=== PATIENT | female | born 1965 | race Caucasian/White ===

== ENCOUNTER 2017-07-06 07:41 | Outpatient (CLI) | payer BC ==
--- NOTE | 2017-07-06 09:06 | MRI ---
MRI RIGHT SHOULDER: Date: 07/06/17 PROVIDED CLINICAL HISTORY: Right shoulder pain. FINDINGS: There is low grade partial thickness undersurface tearing suspected involving the distal conjoined te ndon just proximal to the footplate. The components of the rotator cuff appear otherwise intact. The long head biceps tendon appears intact and normally located. The glenoid labrum and glenohumeral articular cartilage is suboptimally evaluated without joint distention, without definite evidence for abnormality. The amount of fluid within the glenohumeral joint appears physiologic. There is no significant subacr omial/subdeltoid bursal fluid. Acromioclavicular joint osteoarthrosis is present with mild mass effec t upon the subjacent supraspinatus. No focal concerning regional marrow or muscular signal abnormalit y is apparent. Partially visualized prominent lymph node within the right axilla. IMPRESSION: 1. Low grade partial thickness undersurface tear is suspected involving the distal conjoined tendon just proximal to the footplate. 2. Acromioclavicular joint osteoarthrosis. 3. Partially visualized enlargement within the right axilla, nonspecific. POS: [facility]
== END 2017-07-06 07:42 | disposition home or self-care (01) ==
LOC: MRI 07:41
PROVIDERS: ATTEND Specialist
DX: M24.811 Other specific joint derangements of right shoulder, not elsewhere classified (principal); M19.011 Primary osteoarthritis, right shoulder

== ENCOUNTER 2017-11-29 15:33 | Outpatient (CLI) | payer BC | END 2017-11-29 15:34 | disposition home or self-care (01) | LOC: BICMAMMO 15:33 | PROVIDERS: ATTEND Specialist | DX: Z12.31 Encounter for screening mammogram for malignant neoplasm of breast (principal) | CPT/HCPCS: 77063; 77067 ==

== ENCOUNTER 2018-04-27 08:15 | Outpatient (CLI) | payer BC ==
--- NOTE | 2018-04-27 08:56 | RAD ---
PA AND LATERAL CHEST: HISTORY: Cough. FINDINGS: Heart size and mediastinum are within normal limits. Lungs are clear of infiltrates. No significant bony findings. IMPRESSION: No active intrathoracic disease. POS: [facility]
== END 2018-04-27 08:16 | disposition home or self-care (01) ==
LOC: BICRAD 08:15
PROVIDERS: ATTEND Specialist
DX: R05 Cough (principal); R53.0 Neoplastic (malignant) related fatigue; J32.0 Chronic maxillary sinusitis
CPT/HCPCS: 36415; 71046; 80053; 84439; 84443; 85025

== ENCOUNTER 2018-05-14 10:30 | Outpatient (CLI) | payer BC ==
--- NOTE | 2018-05-14 14:16 | ULT ---
THYROID ULTRASOUND: DATE: 05/14/2018. HISTORY: Followup evaluation. History of Neno's thyroiditis. COMPARISON: 01/21/2015. FINDINGS: The thyroid gland demonstrates homogeneous echotexture, and no discrete thyroid nodule is appreciated . There was a small nodule seen in the inferior pole right lobe of the thyroid gland, but this nodul e was not imaged on today's examination. Thee is no thyroid nodule seen in either lobe of the thyroi d gland. The right lobe of the thyroid gland measures 2.4 cm x 0.9 cm x 0.8 cm with the left lobe measuring 2. 1 cm x 0.8 cm x 0.7 cm. The thyroid isthmus measures 0.25 cm in AP dimensions. IMPRESSION: 1. The thyroid gland is generally small in size, and no thyroid nodule is seen in either lobe of the thyroid gland. 2. The previously noted nodule in the inferior pole right lobe of the thyroid gland on the study in 2014 is not visualized on today's exam. POS: [facility]
== END 2018-05-14 10:31 | disposition home or self-care (01) ==
LOC: BICULT 10:30
PROVIDERS: ATTEND Nurse Practitioner Family
DX: E01.0 Iodine-deficiency related diffuse (endemic) goiter (principal); R05 Cough; Z80.8 Family history of malignant neoplasm of other organs or systems
CPT/HCPCS: 76536

== ENCOUNTER 2018-06-26 09:09 | Outpatient (CLI) | payer BC | END 2018-06-26 09:10 | disposition home or self-care (01) | LOC: CTENTCT 09:09 | PROVIDERS: ATTEND Specialist | DX: J32.9 Chronic sinusitis, unspecified (principal) | CPT/HCPCS: 70486 ==

== ENCOUNTER 2018-07-05 11:43 | Day surgery (SDC) | payer BC ==
[2018-07-04 12:58] VITALS: BMI 29.2
[2018-07-05] MEDS ORDERED: Oxymetazoline HCl 0.05% ( 15 ML ) ONE (11:55)
[2018-07-05] MEDS ORDERED: Sodium Chloride 0.9% 20 ML ONE (12:10)
[2018-07-05] MEDS ORDERED: Ondansetron PF 4 MG/2 ML Vial ONE (12:55)
[2018-07-05] MEDS ORDERED: Dexamethasone 20 MG/5 ML VIAL ONE (12:55)
[2018-07-05] MEDS ORDERED: Lidocaine 1% w/Epinephrine 1:100K 20 ML VIAL ONE (12:55)
[2018-07-05] MEDS ORDERED: PROPOFOL 200 MG/20 ML VIAL ONE (12:55)
[2018-07-05] MEDS ORDERED: Bacitracin Zinc Ointment 30 gm TUBE ONE (12:55)
[2018-07-05] MEDS ORDERED: Lidocaine 1% PF 5 ML VIAL ONE (12:55)
[2018-07-05] MEDS ORDERED: EPINEPHrine 1 MG/ML AMP ONE (12:55)
[2018-07-05] MEDS ORDERED: Fentanyl 100 MCG/2 ML VIAL ONE ×3 (12:56→14:42)
[2018-07-05] MEDS ORDERED: methylPREDNISolone Acetate 40 mg/ml Vial ONE (12:56)
[2018-07-05] MEDS ORDERED: Morphine 4 MG/ML VIAL ONE (14:21)
[2018-07-05] MEDS ORDERED: Morphine 2 MG/ML SYRINGE ONE (14:33)
--- NOTE | 2018-07-05 20:30 | EKG ---
Test Reason : PREOP Blood Pressure : / mmHG Vent. Rate : 083 BPM Atrial Rate : 083 BPM P-R Int : 168 ms QRS Dur : 078 ms QT Int : 376 ms P-R-T Axes : 066 -16 038 degrees QTc Int : 441 ms Normal sinus rhythm Normal ECG No previous ECGs available Confirmed by DR. Katherine MADERA (3) on 07/05/2018 8:30:05 PM Referred By: JITENDRA Confirmed By:DR. Katherine MADERA
--- NOTE | 2018-07-05 21:05 | OP ---
DATE OF PROCEDURE: 07/05/2018 PREOPERATIVE DIAGNOSES: 1. Chronic sinusitis. 2. Recurrent sinusitis. 3. Chronic facial pain. 4. Headache. 5. Deviated septum. 6. Hypertrophied inferior turbinates. POSTOPERATIVE DIAGNOSES: 1. Chronic sinusitis. 2. Recurrent sinusitis. 3. Chronic facial pain. 4. Headache. 5. Deviated septum. 6. Hypertrophied inferior turbinates. PROCEDURES PERFORMED: 1. Bilateral nasal endoscopy with maxillary antrostomy with removal of tissue. 2. Bilateral nasal endoscopy with total ethmoidectomy. 3. Bilateral nasal endoscopy with frontal sinusotomy. 4. Bilateral nasal endoscopy with sphenoidotomy. 5. Septoplasty. 6. Bilateral nasal endoscopy with submucosal resection of inferior turbinates. DESCRIPTION OF PROCEDURE: BILATERAL NASAL ENDOSCOPY WITH MAXILLARY ANTROSTOMY WITH REMOVAL OF TISSUE: The uncinate was then identified and the extent of the uncinate was appreciated by out-fracturing the uncinate with the ball-tip probe. We then used the sickle blade to disarticulate the uncinate from the lateral nasal wall. This was then removed with straight biting and upbiting punches with the remaining shrouds of mucosa and bony septum removed with the micro-debrider. The natural os of the maxillary sinus was then identified and enlarged with the maxillary punches and back biting forceps. BILATERAL NASAL ENDOSCOPY WITH TOTAL ETHMOIDECTOMY: The anterior face of the ethmoid bulla was entered and with the micro-debrider, dissection continued posteriorly to the ground lamella. The limits of dissection included the insertion of the middle turbinate, medial orbital wall, and base of skull. We similarly identified the frontal recess and removed shrouds of bone and debris in that region to obtain patency into the agger nasi region and frontal recess. We then entered the ground lamella and its anteroinferior aspect and proceeded posteriorly, opening the posterior ethmoid air-cell system. Again, the limits of dissection included the base of skull and medial orbital wall. BILATERAL NASAL ENDOSCOPY WITH FRONTAL SINUSOTOMY: Following the ethmoidectomy, we then turned our attention to the frontal nasal recess. The agger nasi cells were addressed and the frontal recess was exposed. The natural opening to the frontal sinus was identified. At this point, any obstructing shrouds of mucosa and bony fragments were removed with a curved microdebrider. The wound was then examined and found to be free of any obstructing debris. We then turned our attention to the contralateral side and performed a similar procedure again under endoscopic visualization using a 45-degree scope. We were able to visualize the frontal recess. Obstructing shrouds of mucosa and bone were removed with a microdebrider. The natural os of frontal sinus was identified and enlarged and irrigated. At this point, the frontal sinusotomy was completed and we turned to the next area of concern. BILATERAL NASAL ENDOSCOPY WITH SPHENOIDOTOMY: The anterior face of the sphenoid was identified and entered in its extreme anteroinferior aspect. A sphenoid punch was then used to enlarge the sphenoidotomy and no injury to the optic nerve or internal carotid artery occurred. SEPTOPLASTY After local anesthesia was infiltrated into the submucoperichondrial plane, a standard [place] incision was made with a #15 blade down to the level of the septal cartilage. The caudal elevator was used to elevate the mucoperichondrium from the underlying cartilage. We then proceeded beyond the bony cartilaginous junction and elevated the bony periosteum as well. Great attention was paid to the spur to prevent rent formation in the septal flap. A transcartilaginous incision was then made, while preserving an adequate dorsal and caudal cartilaginous strut for tip support. The deformed cartilage was removed and disarticulated from the bony cartilaginous junction and maxillary crest. This was placed in saline and would later be crushed and returned to the mucoperichondrial envelope. We then elevated the contralateral periosteum from the bony cartilaginous region and removed the deformed portions of the bone and bony spurs. The cartilage was then crushed and placed back into the mucoperichondrial envelope and the mucosa was re-approximated with a quilting stitch composed of rapidly absorbent gut suture. The Seligman incision was also closed with interrupted gut suture. At the completion of the case, Martines splints were placed and suture secured to the caudal septum. BILATERAL NASAL ENDOSCOPY WITH SUBMUCOSAL RESECTION OF INFERIOR TURBINATES: After consent was obtained, the patient was identified, brought to the operating room, and placed on the operating room table in the supine position. Consent was obtained, notifying the patient of the possibility of additional infections, bleeding, brain injury, and eye/orbital injury. The patient was placed on the operating room table, and general endotracheal anesthesia and intravenous access was obtained. The patient was then positioned, prepped and draped for endoscopic sinus surgery. Nasal preparation included trimming nasal vestibular hairs and spraying in topical Afrin. We then placed Afrin topical solution on nasal pledgets and strategically located them intranasally. The perinasal mucosa was injected with 1% lidocaine with 1:100,000 epinephrine in the submucoperichondrial plane of the septum, lateral nasal wall, and anterior to the uncinate. The patient was then prepped and draped in a sterile fashion and positioned for endoscopic sinus surgery. With the 0-degree endoscope, the patient underwent systematic nasal endoscopy. There were no suspicious internasal masses or lesions identified. We then focused our attention to the osteomeatal complex region under the middle turbinate. The inferior turbinates were visualized with a 0 degree endoscope and outfractured with a Kaushik elevator. The inferior medial aspect was cauterized with the electrocautery. Hemostasis was obtained . After adequate airway was established, we turned our attention to the contralateral side and used a similar procedure. Again, a [place] elevator was used to outfracture inferior turbinates under endoscopic visualization. With a suction cautery, the free inferior medial aspect was cauterized under direct visualization along the length of the inferior turbinate. At this point, we then turned our attention to the contralateral side and proceeded with endoscopic sinus surgery. At the completion of the case, Rice keel splints were placed in the ethmoid cavities after the ethmoidectomy. There were no complications. The patient tolerated the procedure well and was discharged to the recovery room in stable condition prior to return to the preoperative day stay with ultimate discharge home. Prescriptions for pain medication and antibiotics were provided. The patient received intramuscular Depo-Medrol during the case. Job ID: [id number]
== END 2018-07-05 17:20 | disposition home or self-care (01) ==
LOC: SDC 11:43
PROVIDERS: ATTEND Specialist
PROC: 099S8ZZ Drainage of Right Frontal Sinus, Via Natural or Artificial Opening Endoscopic (ICD-10-PCS; principal; 2018-07-05)
PROC: 099W8ZZ Drainage of Right Sphenoid Sinus, Via Natural or Artificial Opening Endoscopic (ICD-10-PCS; principal; 2018-07-05)
PROC: 09BR8ZZ Excision of Left Maxillary Sinus, Via Natural or Artificial Opening Endoscopic (ICD-10-PCS; principal; 2018-07-05)
PROC: 099T8ZZ Drainage of Left Frontal Sinus, Via Natural or Artificial Opening Endoscopic (ICD-10-PCS; principal; 2018-07-05)
PROC: 09BQ8ZZ Excision of Right Maxillary Sinus, Via Natural or Artificial Opening Endoscopic (ICD-10-PCS; principal; 2018-07-05)
PROC: 09SL8ZZ Reposition Nasal Turbinate, Via Natural or Artificial Opening Endoscopic (ICD-10-PCS; principal; 2018-07-05)
PROC: 09TV8ZZ Resection of Left Ethmoid Sinus, Via Natural or Artificial Opening Endoscopic (ICD-10-PCS; principal; 2018-07-05)
PROC: 09SM0ZZ Reposition Nasal Septum, Open Approach (ICD-10-PCS; principal; 2018-07-05)
PROC: 09TU8ZZ Resection of Right Ethmoid Sinus, Via Natural or Artificial Opening Endoscopic (ICD-10-PCS; principal; 2018-07-05)
PROC: 099X8ZZ Drainage of Left Sphenoid Sinus, Via Natural or Artificial Opening Endoscopic (ICD-10-PCS; principal; 2018-07-05)
DX: J32.4 Chronic pansinusitis (principal); J33.0 Polyp of nasal cavity; J34.89 Other specified disorders of nose and nasal sinuses; J34.2 Deviated nasal septum; J34.3 Hypertrophy of nasal turbinates; B95.7 Other staphylococcus as the cause of diseases classified elsewhere; Z79.899 Other long term (current) drug therapy
CPT/HCPCS: 85014; 87070; 87077; 87186; 87205; 93005; 93010; J0171; J1030; J1100; J2001; J2270; J2405; J2704; J3010

== ENCOUNTER 2018-09-06 13:29 | Day surgery (SDC) | payer BC ==
[2018-09-05 11:16] VITALS: BMI 28.7
[2018-09-06] MEDS ORDERED: Lidocaine 1% w/Epinephrine 1:100K 20 ML VIAL ONE (13:48)
[2018-09-06] MEDS ORDERED: Fentanyl 100 MCG/2 ML VIAL ONE (13:49)
[2018-09-06] MEDS ORDERED: Famotidine/PF 20 mg/2ml Vial ONE (13:49)
[2018-09-06] MEDS ORDERED: Oxymetazoline HCl 0.05% ( 15 ML ) ONE (13:56)
[2018-09-06] MEDS ORDERED: Scopolamine 1.5 mg/72 hour Patch ONE (14:02)
[2018-09-06] MEDS ORDERED: Triamcinolone 40 MG/ML VIAL ONE (14:51)
[2018-09-06] MEDS ORDERED: Ondansetron PF 4 MG/2 ML Vial ONE (17:12)
[2018-09-06] MEDS ORDERED: Metoclopramide HCl 10 MG/2 ML VIAL ONE (17:12)
[2018-09-06] MEDS ORDERED: Lidocaine 1% PF 5 ML VIAL ONE (17:12)
[2018-09-06] MEDS ORDERED: PROPOFOL 200 MG/20 ML VIAL ONE (17:12)
[2018-09-06] MEDS ORDERED: Dexamethasone 20 MG/5 ML VIAL ONE (17:12)
[2018-09-06] MEDS ORDERED: Succinylcholine Chloride 20 MG/ML 10 ml SYRINGE FS ONE (17:12)
--- NOTE | 2018-09-07 13:27 | OP ---
DATE OF PROCEDURE: 09/06/2018 PREOPERATIVE DIAGNOSES: Allergic fungal sinusitis and postoperative adhesions. POSTOPERATIVE DIAGNOSES: Allergic fungal sinusitis and postoperative adhesions. PROCEDURE PERFORMED: Bilateral nasal endoscopy with lysis of adhesions and debridement. DESCRIPTION OF PROCEDURE: After consent was obtained, the patient was identified and brought to the operating room, and placed on the operating room table in the supine position. General laryngeal mask anesthesia was obtained. The patient was positioned for surgery. The patient was found to have dense adhesions postoperatively causing the middle turbinate to scar anteriorly along the medial orbital wall and nasal wall. This was taken down with a infiltrated with 1% lidocaine with 1:100,000 epinephrine and an upbiting [place] was used to remove the scar tissue. We were then able to suction the from the ethmoid cavity, sphenoid cavity, and ensured that the frontal recess was patent. We then placed MeroGel packs in the nasal cavity and injected those with Kenalog to prevent postoperative adhesion formation. The patient was then awakened, the mask was removed, and taken to the recovery room, where she remained in stable condition prior to discharge to home. Job ID: [id number]
== END 2018-09-06 17:24 | disposition home or self-care (01) ==
LOC: SDC 13:29
PROVIDERS: ATTEND Specialist
PROC: 09BK8ZZ Excision of Nasal Mucosa and Soft Tissue, Via Natural or Artificial Opening Endoscopic (ICD-10-PCS; principal; 2018-09-06)
DX: J32.8 Other chronic sinusitis (principal); J34.89 Other specified disorders of nose and nasal sinuses; E07.9 Disorder of thyroid, unspecified; Z88.2 Allergy status to sulfonamides; Z79.899 Other long term (current) drug therapy
CPT/HCPCS: 36415; 85014; 87070; 87077; 87186; 87205; J0131; J1100; J2001; J2405; J2704; J2765; J3010; J3301; S0028

== ENCOUNTER 2018-12-03 15:55 | Outpatient (CLI) | payer BC ==
--- NOTE | 2018-12-03 16:24 | MMO ---
Bilateral MAMMO Bilat Screen [facility]. CLINICAL HISTORY: Patient is 53 years old and is seen for screening. The patient has no family history of breast cancer. The patient has no personal history of cancer. The patient has a history of right Excisional Biopsy - benign - over 20 yrs ago. VIEWS: The views performed were: bilateral craniocaudal with tomosynthesis; bilateral mediolateral oblique with tomosynthesis; and left exaggerated craniocaudal. FILMS COMPARED: The present examination has been compared to prior imaging studies performed at [facility] on 06/17/2013, 09/04/2014, 09/07/2015 and 11/29/2017. MAMMOGRAM FINDINGS: The breasts are heterogeneously dense, which could obscure a lesion on mammography. There are stable benign appearing calcifications with diffuse/scattered distribution seen in both breasts. There are no suspicious masses, suspicious calcifications, or new areas of architectural distortion. IMPRESSION: THERE IS NO MAMMOGRAPHIC EVIDENCE OF MALIGNANCY. A ROUTINE FOLLOW-UP MAMMOGRAM IN 1 YEAR IS RECOMMENDED. THE RESULTS OF THIS EXAM WERE SENT TO THE PATIENT. ACR BI-RADS Category 2 - Benign finding MAMMOGRAPHY NOTE: 1. A negative mammogram report should not delay a biopsy if a dominant of clinically suspicious mass is present. 2. Approximately 10% to 15% of breast cancers are not detected by mammography. 3. Adenosis and dense breasts may obscure an underlying neoplasm. Reported by: TWIN AYON MD Electonically Signed: [id number]
== END 2018-12-03 15:56 | disposition home or self-care (01) ==
LOC: BICMAMMO 15:55
PROVIDERS: ATTEND Specialist
DX: Z12.31 Encounter for screening mammogram for malignant neoplasm of breast (principal); Z91.89 Other specified personal risk factors, not elsewhere classified
CPT/HCPCS: 77063; 77067

== ENCOUNTER 2019-01-08 10:29 | Inpatient (IN) | payer BC ==
[2019-01-08] MEDS ORDERED: Ondansetron HCl/PF 8 MG in Sodium Chloride 0.9% 50 ML IVPB PRN (11:37)
[2019-01-08 11:44] VITALS: BMI 27.8
[2019-01-08] MEDS: Sodium Chloride 0.9% 1,000 ML IV SCH ×4 (12:57→19:12)
[2019-01-08] MEDS: Diphenoxylate HCl/Atropine Tablet PO SCH ×2 (12:57→17:39)
[2019-01-08] MEDS: Fentanyl 100 MCG/2 ML VIAL SLOW IVP PRN ×2 (12:57→17:46)
--- NOTE | 2019-01-08 12:57 | RAD ---
XR Chest 1 View Portable HISTORY: Cough COMPARISON: 04/27/2018 FINDINGS: The heart size is normal. The lungs are well expanded without focal areas of consolidation, pneumoth orax or pleural effusions. There is a radiopaque density which may represent a coin noted under the right hemidiaphragm and was not seen on the previous study. This may be located in the right/transverse colon. The other possibility is a calcific mass in the liver.
[2019-01-08] MEDS ORDERED: Sodium Chloride 0.9% 1,000 ML IV SCH (13:45)
[2019-01-08 13:52] LABS: #Eosinphils 0.1 thou/uL (0.0-0.7); #Lymphocytes 2.8 thou/uL (1.20-3.40); #Monocytes 0.8 thou/uL (0.11-0.59); %Basophils 0.3 % (0.0-1.0); %Eosinophils 1.2 % (0.0-10.0); %Lymphocytes 32.4 % (21.0-51.0); %Monocytes 8.9 % (0.0-10.0); %Neutrophils 57.2 % (42.0-75.0); Hemoglobin 11.9 g/dL (12.0-16.0); Mean Corpuscular HGB CONC 33.5 g/dL (32.0-36.0); Mean Corpuscular Hemoglobin 29.6 pg (27.0-31.0); Mean Corpuscular Volume 88.5 fL (78.0-98.0); Mean Platelet Volume 7.3 fL (7.4-10.4); Platelet Count 284 thou/uL (130-400); RBC Distribution Width 12.7 % (11.5-14.5); Red Blood Cell (RBC) Count 4.03 mill/uL (4.20-5.40); White Blood Cell (WBC) Count 8.7 thou/uL (4.8-10.8)
[2019-01-08 14:02] LABS: Bilirubin Negative (Negative); Blood, Urine Negative (Negative); Clarity Clear (Clear); Glucose, Urine (Dipstick) Normal (Negative); Leukocyte Negative Leu/uL (Negative); Nitrite Negative (Negative); Protein, Urine (Dipstick) Negative (Neg-Trace); Urobilinogen Normal mg/dL (Less than 2)
[2019-01-08 14:12] LABS: ALT (SGPT) 10 U/L (8-55); AST (SGOT) 20 U/L (5-34); Albumin 3.7 g/dL (3.5-5.0); Alkaline Phosphatase 100 U/L (40-150); Anion Gap 11 mmol/L (10-20); BUN (Urea Nitrogen) 10 mg/dL (9.8-20.1); Bilirubin, Total 0.3 mg/dL (0.2-1.2); CK (CPK) 60 U/L (29-168); Calc. Creatinine Clearance 93 mL/min (70-130); Calcium 8.1 mg/dL (7.8-10.44); Carbon Dioxide 25 mmol/L (22-29); Chloride 106 mmol/L (98-107); Estimated GFR-MDRD 84; Globulin 2.9 g/dL (2.4-3.5); Glucose 73 mg/dL (70-105); Potassium 3.5 mmol/L (3.5-5.1); Protein, Total 6.6 g/dL (6.0-8.3); Sodium 138 mmol/L (136-145)
[2019-01-08] MEDS ORDERED: Acetaminophen 650 MG Suppository PR PRN (16:21)
[2019-01-08] MEDS: cefTRIAXone\\ROCEPHIN 1 GM in Sodium Chloride 0.9% 100 ML IVPB SCH (19:11)
[2019-01-08] MEDS ORDERED: Diphenoxylate HCl/Atropine Tablet PO PRN (19:22)
[2019-01-08] MEDS ORDERED: Zolpidem Tartrate 5 MG TAB PO PRN (19:45)
[2019-01-09] MEDS: Sodium Chloride 0.9% 1,000 ML IV SCH ×4 (00:39→17:38)
--- NOTE | 2019-01-09 00:47 | HP ---
CHIEF COMPLAINT ON ADMISSION: Dehydration and intractable headache. HISTORY OF PRESENT ILLNESS: The patient is a 53-year-old female who for the last 3 days has had nausea, vomiting, and diarrhea and severe bilateral headache associated with blurred vision. She has tried to hold down p.o. fluids, she has been unable to do so. She finally came in to Dr. Carrasquillo' office on the day of admission, where she was noted on UA to have 300 level ketones and blood in her urine. She was very weak and barely able to walk, at which point, she was clear, she needed to be hospitalized and rehydrated. She was also noted to have low blood pressure in the office. PAST MEDICAL HISTORY: Significant for chronic sinusitis, hypertension, heart murmur, for which she takes antibiotics prophylactically, hypothyroidism. She is menopausal. PAST SURGICAL HISTORY: Includes hysterectomy, laparoscopic bladder sling and oophorectomy. She has also had ESS surgery by Dr. Simmons. FAMILY HISTORY: Unremarkable. SOCIAL HISTORY: Does not smoke or drink or use illicit drugs. She is . MEDICATIONS ON ADMISSION: Include estrogen and thyroid medication. REVIEW OF SYSTEMS: At the time of admission, CONSTITUTIONAL: She is weak, diaphoretic, unable to hold down oral fluids and burning with urination. HEENT: Eyes, ears, nose, and throat are dry without active drainage or lesions. CHEST: Showing no palpitations or chest pain. RESPIRATORY: Denies cough or dyspnea. GI: Positive for nausea, vomiting, and diarrhea. : Positive for dysuria, but no visible blood in urine or stool. MUSCULOSKELETAL: General aches and pains all over. SKIN: No new rashes or lesions. LYMPHATICS AND ENDOCRINE: Denies any swelling or ecchymotic lesions. NEUROLOGIC: Has a significant headache, but no trouble with mentation. No areas of hypesthesia or anesthesia. PHYSICAL EXAMINATION: VITAL SIGNS: On admission, blood pressure is 151/90, pulse 67, temperature 97.7 , respirations 18, O2 saturation 97% on room air. She weighs 147 pounds. GENERAL: This is a well-developed, well-nourished female, alert, oriented, cooperative. HEENT: Normocephalic, atraumatic. Pupils are equal, round, and reactive to light. Extraocular muscles are intact. TMs, nares clear. Pharynx is dry. NECK: Supple, trachea is midline. CHEST: Clear to auscultation. BREASTS: Deferred. HEART: Regular rate and rhythm. ABDOMEN: Soft, generally tender, but no organomegaly or hepatosplenomegaly. : Deferred. EXTREMITIES: Without clubbing, cyanosis, or edema. Normal range of motion present. SKIN: Without acute rashes or lesions. NEUROLOGIC: Cranial nerves are intact. Mental status is baseline clear. The gait and cerebral function are untested at this time. Sensory exam is grossly intact. LABORATORY DATA: On admission, WBC 8.7, hemoglobin 11.9, hematocrit 35.7 with platelets at 284. Sodium 138, potassium 3.5, chloride 106, CO2 25, BUN 10, creatinine 0.72 with a GFR of 84. Liver functions entirely unremarkable. Urinalysis in the hospital shows positive for ketones, otherwise unremarkable. Chest x-ray shows coin-like lesion over the liver, otherwise lung diaz are clear and heart is normal. ASSESSMENT: 1. Intractable headache. 2. Dehydration. 3. Gastroenteritis with nausea, vomiting, and diarrhea. PLAN: 1. IV fluid hydration. 2. Antiemetics. 3. Pain management. 4. Serial re-evaluation. Job ID: [id number] MTDD
[2019-01-09 06:29] LABS: #Eosinphils 0.1 thou/uL (0.0-0.7); #Lymphocytes 2.9 thou/uL (1.20-3.40); #Monocytes 0.8 thou/uL (0.11-0.59); #Neutrophils 5.3 thou/uL (1.40-6.50); %Basophils 0.5 % (0.0-1.0); %Eosinophils 1.4 % (0.0-10.0); %Lymphocytes 31.2 % (21.0-51.0); %Monocytes 8.5 % (0.0-10.0); %Neutrophils 58.4 % (42.0-75.0); Hemoglobin 10.7 g/dL (12.0-16.0); Mean Corpuscular HGB CONC 33.7 g/dL (32.0-36.0); Mean Corpuscular Hemoglobin 29.7 pg (27.0-31.0); Mean Corpuscular Volume 87.9 fL (78.0-98.0); Mean Platelet Volume 7.4 fL (7.4-10.4); Platelet Count 266 thou/uL (130-400); RBC Distribution Width 12.6 % (11.5-14.5); Red Blood Cell (RBC) Count 3.61 mill/uL (4.20-5.40); White Blood Cell (WBC) Count 9.1 thou/uL (4.8-10.8)
[2019-01-09 06:46] LABS: Anion Gap 10 mmol/L (10-20); BUN (Urea Nitrogen) 6 mg/dL (9.8-20.1); Calc. Creatinine Clearance 110 mL/min (70-130); Calcium 7.2 mg/dL (7.8-10.44); Carbon Dioxide 22 mmol/L (22-29); Chloride 112 mmol/L (98-107); Estimated GFR-MDRD Greater than 90; Glucose 86 mg/dL (70-105); Potassium 3.1 mmol/L (3.5-5.1); Sodium 141 mmol/L (136-145)
[2019-01-09] MEDS: Potassium Chloride 20 MEQ TAB PO SCH ×2 (08:50→20:07)
[2019-01-09] MEDS: HYDROcodone/Acetaminophen 5/325 mg Tablet PO SCH ×4 (08:50→20:09)
[2019-01-09] MEDS: cefTRIAXone\\ROCEPHIN 1 GM in Sodium Chloride 0.9% 100 ML IVPB SCH (17:31)
[2019-01-10] MEDS: Acetaminophen 325 MG TAB PO PRN (02:39)
[2019-01-10] MEDS: Sodium Chloride 0.9% 1,000 ML IV SCH ×3 (02:40→18:35)
[2019-01-10 05:30] LABS: #Eosinphils 0.1 thou/uL (0.0-0.7); #Lymphocytes 3.5 thou/uL (1.20-3.40); #Monocytes 0.5 thou/uL (0.11-0.59); #Neutrophils 3.5 thou/uL (1.40-6.50); %Basophils 0.6 % (0.0-1.0); %Eosinophils 1.6 % (0.0-10.0); %Lymphocytes 45.3 % (21.0-51.0); %Monocytes 6.9 % (0.0-10.0); %Neutrophils 45.6 % (42.0-75.0); Hemoglobin 10.6 g/dL (12.0-16.0); Mean Corpuscular HGB CONC 34.1 g/dL (32.0-36.0); Mean Corpuscular Hemoglobin 30.1 pg (27.0-31.0); Mean Corpuscular Volume 88.4 fL (78.0-98.0); Mean Platelet Volume 7.3 fL (7.4-10.4); Platelet Count 261 thou/uL (130-400); RBC Distribution Width 12.8 % (11.5-14.5); Red Blood Cell (RBC) Count 3.51 mill/uL (4.20-5.40); White Blood Cell (WBC) Count 7.8 thou/uL (4.8-10.8)
[2019-01-10 05:58] LABS: Anion Gap 8 mmol/L (10-20); BUN (Urea Nitrogen) 5 mg/dL (9.8-20.1); Calc. Creatinine Clearance 105 mL/min (70-130); Calcium 7.8 mg/dL (7.8-10.44); Carbon Dioxide 22 mmol/L (22-29); Chloride 111 mmol/L (98-107); Estimated GFR-MDRD Greater than 90; Glucose 86 mg/dL (70-105); Potassium 3.8 mmol/L (3.5-5.1); Sodium 137 mmol/L (136-145)
[2019-01-10] MEDS: HYDROcodone/Acetaminophen 5/325 mg Tablet PO SCH ×4 (08:51→20:51)
[2019-01-10] MEDS: Potassium Chloride 20 MEQ TAB PO SCH (08:51)
[2019-01-10] MEDS: cefTRIAXone\\ROCEPHIN 1 GM in Sodium Chloride 0.9% 100 ML IVPB SCH (18:27)
[2019-01-11] MEDS: Sodium Chloride 0.9% 1,000 ML IV SCH ×2 (01:45→03:39)
[2019-01-11] MEDS: Acetaminophen 325 MG TAB PO PRN (03:39)
[2019-01-11 07:59] VITALS: BP 146/88; TEMP 98.1
[2019-01-11] MEDS ORDERED: SUMAtriptan Succinate 6 MG/0.5 ML VIAL SC SCH (08:15)
[2019-01-11] MEDS: Potassium Chloride 20 MEQ TAB PO SCH (08:56)
[2019-01-11] MEDS: HYDROcodone/Acetaminophen 5/325 mg Tablet PO SCH (08:56)
--- NOTE | 2019-01-14 08:29 | PQF ---
[employer] Schol[employer] Aptitude Test Grader Crystal Reports Winform ViewerSTPETRONA DEE DENVER BECKFORD MD [id number] [id number] CLINICAL DOCUMENTATION CLARIFICATION FORM: POST DISCHARGE Addendum to original discharge summary date: ____ Late entry note date: __ DATE: 01/14/2019 ATTN: DENVER BECKFORD MD Please exercise your independent, professional judgment in responding to the clarification form. Clinical indicators are provided on the bottom of this form for your review Please check appropriate box(s): [ ] Nausea/vomiting due to gastroenteritis [ x ] Nausea/vomiting due to Viral syndrome [ x ] Other diagnosis __intractable Migraine [ ] Unable to determine For continuity of documentation, please document condition throughout progress notes and discharge summary. Thank You. CLINICAL INDICATORS - SIGNS / SYMPTOMS / LABS - Gastroenteritis with nausea, vomiting and diarrhea- H&P, 01/08,DENVER BECKFORD MD - Viral Syndrome- Progress notes, 01/10 - Abdomen:soft, Generally tender, but no organomegaly-H&P, 01/08,DENVER BECKFORD MD - last 3 days has had nausea, vomiting and diarrhea-H&P, 01/08,DENVER BECKFORD MD - Blood cx: Micrococcus species- Microbiology, 01/08, RISK FACTORS - Dehydration- H&P, 01/08,DENVER BECKFORD MD - intractable headache- H&P, 01/08,DENVER BECKFORD MD TREATMENT: -Rocephin.IV- 01/08 -Sodium chloride.IV-01/08 -Ondansetron IV-01/08 (This form is maintained as a part of the permanent medical record) 2014 [employer]. All Rights Reserved Conner Johnson [not provided] [not provided] MTDD
== END 2019-01-11 11:30 | disposition home or self-care (01) | DRG 866 ==
LOC: T4-B 10:29
PROVIDERS: ADMIT Specialist; ATTEND Specialist
DX: B34.9 Viral infection, unspecified (principal); E86.0 Dehydration; G43.919 Migraine, unspecified, intractable, without status migrainosus; K52.9 Noninfective gastroenteritis and colitis, unspecified; R09.1 Pleurisy
CPT/HCPCS: 36415; 71045; 80048; 80053; 81003; 82550; 85025; 87040; 87086; 87149; 87804; 93005; 93010; J0696; J3010; J3030; J3490

== ENCOUNTER 2019-04-08 08:01 | Outpatient (CLI) | payer BC ==
--- NOTE | 2019-04-08 09:07 | MRI ---
MRI BRAIN WITHOUT CONTRAST: HISTORY: Intractable headache FINDINGS: No restricted diffusion is seen.. The ventricular size is appropriate and the basilar cisterns are pa tent. No evidence of acute infarct, hemorrhage, midline shift or abnormal extra-axial fluid collections is seen. There is mucosal disease in the paranasal sinuses. IMPRESSION: 1 No evidence of acute intracranial process. 2. Paranasal sinus disease.
== END 2019-04-08 08:02 | disposition home or self-care (01) ==
LOC: BICMRI 08:01
PROVIDERS: ATTEND Specialist
DX: G44.011 Episodic cluster headache, intractable (principal); J32.4 Chronic pansinusitis
CPT/HCPCS: 70551

== ENCOUNTER 2019-11-08 08:00 | Outpatient (CLI) | payer BC ==
--- NOTE | 2019-11-08 09:59 | CT ---
CT ANGIOGRAM HEAD: Date: 11/08/2019 COMPARISON: None. HISTORY: Intractable migraine headaches without aura, nausea and vision changes with migraines. TECHNIQUE: Axial CT imaging at 5 mm intervals from vertex through skull base without contrast. Then, axial CT im aging from skull base through vertex with IV contrast at 2 mm intervals with coronal and sagittal ref ormatted imaging. FINDINGS: Noncontrast enhanced imaging demonstrates no intracranial hemorrhage, midline shift, mass effect, or ventricular enlargement. The imaged paranasal sinuses and mastoid air cells are well aerated. There i s no displaced calvarial fractures. Postcontrast imaging demonstrates a hypoplastic distal right vertebral artery with a dominant left ve rtebral artery. Imaged portions of bilateral vertebral arteries are patent. The basilar artery is pat ent. There is a origin of the left posterior cerebral artery. No saccular aneurysm, high grade stenosis, or vascular occlusion is noted involving the posterior circulation. The imaged extracranial ICA is patent bilaterally. The A1 segment is hypoplastic on the right. Region of the anterior communicating artery appears unrem arkable, as do distal bilateral HERMELINDA branches. There is an infundibulum at the origin of the left SCRAP HOIST OPERATOR. The M1 segment is patent bilaterally. The MCA bifurcation and distal MCA branches are grossly unrema rkable. No saccular aneurysm, high grade stenosis, or vascular occlusion is seen involving the anteri or circulation. Dural venous sinuses appear grossly unremarkable. There is mild mucosal thickening involving the alveolar recess of the maxillary sinus on the right. T here is minimal mucosal thickening of the frontal sinus on the right. No acute osseous abnormality. IMPRESSION: No intracranial hemorrhage or acute arterial abnormality. Incidental findings as detailed above. POS: [facility]
[2019-11-08] MEDS ORDERED: Iopamidol-370 76% 500 ML 1 ML ONE (12:23)
== END 2019-11-08 08:01 | disposition home or self-care (01) ==
LOC: BICCT 08:00
PROVIDERS: ATTEND Nurse Practitioner Acute Care
DX: G43.011 Migraine without aura, intractable, with status migrainosus (principal)
CPT/HCPCS: 70496; Q9967

== ENCOUNTER 2019-12-27 10:29 | Outpatient (CLI) | payer BC ==
--- NOTE | 2019-12-27 11:18 | MMO ---
Bilateral MAMMO Bilat Screen [facility]. CLINICAL HISTORY: Patient is 54 years old and is seen for screening. The patient has no family history of breast cancer. The patient has no personal history of cancer. The patient has a history of right Excisional Biopsy - benign - over 20 yrs ago. VIEWS: The views performed were: bilateral craniocaudal with tomosynthesis and bilateral mediolateral oblique with tomosynthesis. FILMS COMPARED: The present examination has been compared to prior imaging studies performed at [facility] on 09/04/2014, 09/07/2015, 11/29/2017 and 12/03/2018. This study has been interpreted with the assistance of computer-aided detection. MAMMOGRAM FINDINGS: The breasts are heterogeneously dense, which could obscure a lesion on mammography. There are stable benign appearing calcifications seen in both breasts. There are no suspicious masses, suspicious calcifications, or new areas of architectural distortion. IMPRESSION: THERE IS NO MAMMOGRAPHIC EVIDENCE OF MALIGNANCY. A ROUTINE FOLLOW-UP MAMMOGRAM IN 1 YEAR IS RECOMMENDED. THE RESULTS OF THIS EXAM WERE SENT TO THE PATIENT. ACR BI-RADS Category 2 - Benign finding MAMMOGRAPHY NOTE: 1. A negative mammogram report should not delay a biopsy if a dominant of clinically suspicious mass is present. 2. Approximately 10% to 15% of breast cancers are not detected by mammography. 3. Adenosis and dense breasts may obscure an underlying neoplasm. Reported by: TWIN AYON MD Electonically Signed: [id number]
--- NOTE | 2019-12-27 11:26 | BD ---
DEXA BONE DENSITY STUDY: Date: 11/26/2019 HISTORY: Osteoporosis screening. COMPARISON: None. FINDINGS: Lumbar Spine: BMD (g/cm2) L1 1.145 T-Score: 1.4 Z-Score: 2.4 L2 1.262 T-Score: 2.1 Z-Score: 3.3 L3 1.370 T-Score: 2.6 Z-Score: 3.8 L4 1.322 T-Score: 2.4 Z-Score: 3.6 L1-L4 1.280 T-Score: 2.1 Z-Score: 3.3 Left Femoral Neck: 0.974 T-Score: 1.1 Z-Score: 2.2 Total Femur: 1.066 T-Score: 1.0 Z-Score: 1.8 IMPRESSION: Normal bone mineral density. POS: [facility]
== END 2019-12-27 10:30 | disposition home or self-care (01) ==
LOC: BICMAMMO 10:29
PROVIDERS: ATTEND Specialist
DX: Z12.31 Encounter for screening mammogram for malignant neoplasm of breast (principal); M81.0 Age-related osteoporosis without current pathological fracture; Z91.89 Other specified personal risk factors, not elsewhere classified
CPT/HCPCS: 77063; 77067; 77080

== ENCOUNTER 2020-07-31 13:08 | Outpatient (CLI) | payer BC | END 2020-07-31 13:09 | disposition home or self-care (01) | LOC: BICULT 13:08 | PROVIDERS: ATTEND Internal Medicine Endocrinology, Diabetes & Metabolism | DX: E04.8 Other specified nontoxic goiter (principal); E03.9 Hypothyroidism, unspecified; E03.4 Atrophy of thyroid (acquired) | CPT/HCPCS: 76536 ==

== ENCOUNTER 2021-01-27 08:45 | Outpatient (CLI) | payer BC | END 2021-01-27 08:46 | disposition home or self-care (01) | LOC: BICMAMMO 08:45 | PROVIDERS: ATTEND Specialist | DX: Z12.31 Encounter for screening mammogram for malignant neoplasm of breast (principal) | CPT/HCPCS: 77063; 77067 ==

== ENCOUNTER 2023-06-01 11:30 | Outpatient (CLI) | payer BC | END 2023-06-01 11:31 | disposition home or self-care (01) | LOC: BICMAMMO 11:30 | PROVIDERS: ATTEND Specialist | DX: Z12.31 Encounter for screening mammogram for malignant neoplasm of breast (principal); Z91.89 Other specified personal risk factors, not elsewhere classified | CPT/HCPCS: 77063; 77067 ==